=== PATIENT | female | born 1995 | race Caucasian/White ===

== ENCOUNTER 2017-08-11 05:53 | Emergency (ER) | payer OTHER ==
[~2017-08-11] VITALS: Ht 170.2 cm; Wt 53.2 kg
[~2017-08-11 05:53] MED LIST: BACT PO; IBUP-1116 PO; MACR100C PO; TRI-TAB PO
[2017-08-11 05:58] VITALS: BP 121/82; PULSE 107; RESP 14; TEMP 98.2; O2SAT 100
--- NOTE | 2017-08-11 06:25 | PD ---
HPI Chief Complaint: GI Complaint Time Seen by Provider: 06:12 Travel History International Travel<30 days: No Contact w/Intl Traveler<30days: No Traveled to known affect area: No History of Present Illness HPI pt has lleft lower quad pain that started few days ago , she has had this same pain off and on for months , She went to her Doctor had UA checked and negative for UTI . pt has ovarian cyst in the past but never needed laproscopic removal . pt also reports sore throat and leg numbness bialteral left > right. She is currently in Nursing school. Pt is currnetly on OCP to regulate her period and reduce ovarian cysts but without relief. of frequent LLQ pain that she assumes is a recurrence of ovarian cyst.. Pt has had hx of constipation as well as pyelonephritis , POC BEDSIDE NEGATIVE PFSH Past Medical History Autoimmune Disease: No Cardiovascular Problems: No Diminished Hearing: No Gastrointestinal Disorders: Yes (vomiting) Genitourinary: Yes (ovain csyt) Musculoskeletal: No Neurologic: No Psychiatric: No Respiratory: No Immunizations Current: Yes Tetanus Vaccination: < 5 Years Influenza Vaccination: Yes ?: Unknown LMP: 07/28/17 Past Surgical History Surgical History: No Previous Surgery Genitourinary Surgery: No Other Surgery: No Social History Alcohol Use: No Tobacco Use: No Substance Use: No Allergies-Medications (Allergen,Severity, Reaction): Coded Allergies: No Known Allergies (Verified Adverse Reaction, Unknown, 08/11/17) Reported Meds & Prescriptions Reported Meds & Active Scripts Active Diflucan (Fluconazole) 150 Mg Tab 150 Mg PO ONCE Miralax Powder (Polyethylene Glycol 3350 Powder) 17 Gm Powd 17 Gm PO DAILY Mix and dissolve one measuring cap-ful (17 grams) in water or juice. Review of Systems Except as stated in HPI: all other systems reviewed are Neg HENT: Positive: Sore Throat Gastrointestinal: Positive: Abdominal Pain, No: Constipation Genitourinary: Positive: Dysuria, No: Urgency, Frequency Physical Exam Narrative GENERAL: non toxic afebrile SKIN: Warm and dry. HEAD: Atraumatic. Normocephalic. EYES: Pupils equal and round. No scleral icterus. No injection or drainage. ENT: No nasal bleeding or discharge. Mucous membranes pink and moist. NECK: Trachea midline. No JVD. CARDIOVASCULAR: Regular rate and rhythm. RESPIRATORY: No accessory muscle use. Clear to auscultation. Breath sounds equal bilaterally. GASTROINTESTINAL: Abdomen LLQ pain adnexal pain no RLQ pain , mild suprapubic pain soft,nondistended. Hepatic and splenic margins not palpable. MUSCULOSKELETAL: Extremities reports numbness to left leg but no deformity no swelling no calf swelling . without clubbing, cyanosis, or edema. No obvious deformities. NEUROLOGICAL: Awake and alert. No obvious cranial nerve deficits. Motor grossly within normal limits. Five out of 5 muscle strength in the arms and legs. Normal speech. PSYCHIATRIC: Appropriate mood and affect; insight and judgment normal. Data Data Last Documented VS Vital Signs Date Time Temp Pulse Resp B/P (MAP) Pulse Ox O2 Delivery O2 Flow Rate FiO2 08/11/17 09:34 88 16 116/68 (84) 98 08/11/17 05:58 98.2 Orders Orders Urinalysis - C+S If Indicated (08/11/17 06:20) Ed Urine Pregnancytest Poc (08/11/17 06:20) Group A Rapid Strep Screen (08/11/17 06:21) Influenzae A/B Antigen (08/11/17 06:21) Ibuprofen (Motrin) (08/11/17 07:00) Strep Culture (Group A) (08/11/17 06:30) Us Pelvis Comp W Dop Transvag (08/11/17 ) Ed Discharge Order (08/11/17 08:37) Gc And Chlamydia Pcr (08/11/17 08:48) Labs Laboratory Tests Test 08/11/17 06:30 Urine Collection Type CLEAN CATCH Urine Color YELLOW Urine Turbidity SL CLOUDY Urine pH 5.5 Urine Specific [place] 1.025 Urine Protein NEG mg/dL Urine Glucose (UA) NEG mg/dL Urine Ketones NEG mg/dL Urine Occult Blood TRACE Urine Nitrite NEG Urine Bilirubin NEG Urine Urobilinogen 0.2 MG/DL Urine Leukocyte Esterase NEG Urine Squamous Epithelial Cells 6-8 /hpf Urine Bacteria FEW /hpf Urine Mucus MOD /lpf Urine Yeast (Budding) OCC Microscopic Urinalysis Comment CULT NOT INDICATED Chlamydia trachomatis DNA (PCR) NOT DETECTED Neisseria gonorrhoeae DNA (PCR) NOT DETECTED MDM Medical Decision Making Medical Screen Exam Complete: Yes Emergency Medical Condition: Yes Differential Diagnosis ovarian cyst vs colitis , vs UTI vs pyelonephritis , vs mesenteric adenitis , other Narrative Course UA sent and US of ovary ordered and pt is signed out to next MD Diagnosis Primary Impression: LLQ abdominal pain Scripts Fluconazole (Diflucan) 150 Mg Tab 150 MG PO ONCE for Infection, #1 TAB 0 Refills Prov: Yogesh Geronimo MD 08/11/17 Polyethylene Glycol 3350 Powder (Miralax Powder) 17 Gm Powd 17 GM PO DAILY for Constipation, #1 CAN 0 Refills Mix and dissolve one measuring cap-ful (17 grams) in water or juice. Prov: Patrick Wade MD 08/11/17 Patrick Wade MD Aug 11, 2017 06:25
[2017-08-11 06:40] LABS: BILIRUBIN, URINE NEG (NEG); BLOOD, URINE TRACE (NEG); GLUCOSE,URINE NEG (NEG); KETONE, URINE NEG (NEG); NITRITE,URINE NEG (NEG); PH, URINE 5.5 (5.0-8.5); URINE COLOR YELLOW (YELLW/STRAW); URINE LEUKOCYTE ESTERASE NEG (NEG)
[2017-08-11] MEDS ORDERED: MIRA3350 PO (06:45)
[2017-08-11 06:54] LABS: MUCUS URINE MOD /lpf (OCC)
[2017-08-11 06:55] LABS: BACTERIA, URINE FEW /hpf
[2017-08-11] MEDS ORDERED: IBUPROFEN 600 MG TAB PO ONE (07:00)
--- NOTE | 2017-08-11 08:30 | RADRPT ---
EXAM DATE/TIME: 08/11/2017 07:40 [facility] COMPARISON: US PELVIS,COMP,W DOPLR, TRANS VAG, February 01, 2016, 18:17. INDICATIONS : Pelvic pain. MEDICAL HISTORY : Pelvic pain. Ovarian cysts. SURGICAL HISTORY : Permanant retainer. ENCOUNTER: Initial ACUITY: 1 day PAIN SCORE: 4/10 LOCATION: Bilateral pelvis MEASUREMENTS: UTERUS: 6.9 x 3.2 x 5.6 cm ENDOMETRIAL STRIPE: 4 mm RIGHT OVARY: 2.6 x 2.0 x 2.7 cm LEFT OVARY: 2.4 x 1.6 x 2.5 cm FINDINGS: UTERUS: The myometrium has homogeneous echotexture. A 2 cm myometrial mass is identified on the left in the m id uterus.. RIGHT OVARY: Ovary contains no mass or significant cystic lesion. Normal flow is identified on Doppler. LEFT OVARY: Ovary contains no mass or significant cystic lesion. Normal flow is identified in Doppler. MISCELLANEOUS: Small amount free fluid. CONCLUSION: 1. 2 cm myometrial mass characteristic of a small leiomyoma. 2. Normal appearing ovaries with normal flow. 3. Minimal fluid in the cul-de-sac. 4. No other significant abnormality. Mitch Herbert MD on August 11, 2017 at 8:25 Board Certified Radiologist. This report was verified electronically.
[2017-08-11] MEDS ORDERED: DIFL150T PO (08:37)
--- NOTE | 2017-08-11 08:37 | PD ---
Physical Exam Narrative Patient was signed out to me for left lower quadrant pain was pending ultrasound. Ultrasound shows small leiomyoma, with minimal fluid in the cul-de- sac. Urine shows Carol. Will go ahead and give her treatment for Carol and I recommend that she follows up with OB for possible change of her control pills. Patient understands the plan of care and agrees she can return to the ER if symptoms change or do not improve. Data Data Last Documented VS Vital Signs Date Time Temp Pulse Resp B/P (MAP) Pulse Ox O2 Delivery O2 Flow Rate FiO2 08/11/17 05:58 98.2 107 14 121/82 (95) 100 Orders Orders Urinalysis - C+S If Indicated (08/11/17 06:20) Ed Urine Pregnancytest Poc (08/11/17 06:20) Group A Rapid Strep Screen (08/11/17 06:21) Influenzae A/B Antigen (08/11/17 06:21) Ibuprofen (Motrin) (08/11/17 07:00) Strep Culture (Group A) (08/11/17 06:30) Us Pelvis Comp W Dop Transvag (08/11/17 ) Labs Laboratory Tests Test 08/11/17 06:30 Urine Collection Type CLEAN CATCH Urine Color YELLOW Urine Turbidity SL CLOUDY Urine pH 5.5 Urine Specific [place] 1.025 Urine Protein NEG mg/dL Urine Glucose (UA) NEG mg/dL Urine Ketones NEG mg/dL Urine Occult Blood TRACE Urine Nitrite NEG Urine Bilirubin NEG Urine Urobilinogen 0.2 MG/DL Urine Leukocyte Esterase NEG Urine Squamous Epithelial Cells 6-8 /hpf Urine Bacteria FEW /hpf Urine Mucus MOD /lpf Urine Yeast (Budding) OCC Microscopic Urinalysis Comment CULT NOT INDICATED MDM Medical Record Reviewed: Yes Supervised Visit with DONYA: Yes Diagnosis Primary Impression: LLQ abdominal pain Additional Impressions: Leiomyoma Carol vaginitis Scripts Fluconazole (Diflucan) 150 Mg Tab 150 MG PO ONCE for Infection, #1 TAB 0 Refills Prov: Yogesh Geronimo MD 08/11/17 Polyethylene Glycol 3350 Powder (Miralax Powder) 17 Gm Powd 17 GM PO DAILY for Constipation, #1 CAN 0 Refills Mix and dissolve one measuring cap-ful (17 grams) in water or juice. Prov: Patrick Wade MD 08/11/17 Disposition: 01 DISCHARGE HOME Condition: Stable Yogesh Geronimo MD Aug 11, 2017 08:37
[2017-08-11 09:34] VITALS: BP 116/68
== END 2017-08-11 09:37 | disposition home or self-care (01) ==
LOC: PHED 05:53
DX: R10.32 Left lower quadrant pain (principal); D25.9 Leiomyoma of uterus, unspecified; B37.3 Candidiasis of vulva and vagina
CPT/HCPCS: 76830; 76856; 81001; 84703; 87081; 87491; 87591; 87804; 87880; 93975; 99284